=== PATIENT | female | born 1945 | race Caucasian/White ===

== ENCOUNTER 2016-11-15 21:54 | Inpatient (IN) | payer OTHER ==
[2016-11-14 17:13] LABS: A/G RATIO 1.2 (0.7-1.9); ALBUMIN 4.1 G/DL (3.5-5.0); ALKALINE PHOSPHATASE 113 U/L (45-117); BUN (BLOOD UREA NITROGEN) 20 MG/DL (6-23); CALCIUM, SERUM 8.7 MG/DL (8.5-10.4); CHLORIDE, SERUM 99 MMOL/L (96-112); CREATININE 1.03 MG/DL (0.55-1.02); GFR AFRICAN AMERICAN 63 ML/MIN (>=60); GFR NON AFRICAN AMERICAN 55 ML/MIN (>=60); GLOBULIN 3.4 G/DL (2.5-4.1); GLUCOSE, SERUM 84 MG/DL (60-99); POTASSIUM, SERUM 3.7 MMOL/L (3.5-5.3); SGOT(AST) 14 U/L (5-40); SGPT(ALT) 19 U/L (5-65); SODIUM, SERUM 136 MMOL/L (135-148); TOTAL BILIRUBIN 0.5 MG/DL (0-1.2); TOTAL PROTEIN 7.5 G/DL (6.0-8.5)
[2016-11-14 17:15] LABS: CO2 (CARBON DIOXIDE) 27 MMOL/L (24-34)
--- NOTE | ~2016-11-15 | CN ---
Consultation Report [facility] [address] [place]. [address] NAME: TEO BEEBE : 43 STATUS : ADM Richard PAT#: [id number] AGE: 70 ADM/REG DATE : 11/15/16 MR#: [id number] REPORT SERV DATE: 11/16/16 DICTATED BY: LANETTE STEPHENSON DATE: 11/16/16 REPORT STATUS : Draft TRANSCRIBED BY: MODL DATE: 11/16/16 NEUROLOGY CONSULTATION DATE OF CONSULTATION: 11/16/2016 REASON FOR CONSULTATION: Ataxia. HOSPITALISTS: Dr. Darryl Rasmussen and Cari Stewart NP. HISTORY OF PRESENT ILLNESS: The patient is a 70-year-old female, who has come into the hospital because of a reported sudden onset of ataxia. Apparently, this happened one day last week. She is here with a friend and caregiver, who gives most of the history. The patient can speak for herself; however, she has a very disjointed history, and has flight of ideas. The patient mentions that at some point, she had a sudden onset of imbalance, and she noticed that her gait has changed. Her gait was shuffled and slow. She did fall yesterday and had a hard time getting up. The patient's friend and caregiver mentioned that two weeks ago, the patient was walking perfectly fine, but this last Sunday, she noticed that her gait was slow and unsteady. She was concerned and took the patient to her primary caregivers office. The patient did not get to see her normal PCP, but saw another physician there in the office. She saw no other in the office, and it was suggested that she come to the emergency department for further evaluation to rule out a stroke type event. The patient denied any changes in her speech. She denied any changes in her vision. She had no weakness or numbness in the upper extremities. She mentioned that she felt somewhat weak in the lower extremities. She also mentions that for some period of time, she has had numbness and pain in her feet. She states that she is not diabetic. PAST MEDICAL HISTORY: Hypertension, hyperlipidemia, depression and anxiety, history of recurrent falls, vitamin D deficiency, carpal tunnel syndrome, IBS, chronic pain on chronic narcotics, GERD, degenerative disk disease, anemia, and osteoarthritis. PAST SURGICAL HISTORY: Lumbar laminectomy, and abdominal hysterectomy. MEDICATIONS: Home medication list includes Xanax 1 mg four times a day p.r.n., Celexa 20 mg daily, Zetia 10 mg daily, Neurontin 600 mg t.i.d., HCTZ 12.5 mg daily, multivitamin daily, and Prilosec 20 mg b.i.d. ALLERGIES: MULTIPLE, PLEASE REFER TO THE MEDICATION LIST. SOCIAL HISTORY: The patient lives alone. She has three children. Two of her children have nothing to do with her. She denies the use of tobacco, alcohol, or illicits. FAMILY HISTORY: The patient's mother at the age of 84. She from old age. Her father at the age of 84 from an [place]. She had two twin brothers, one who from dementia, the other who is alive has diabetes and coronary artery disease. She has a Consultation Report [address] [place]. [address] NAME: TEO BEEBE : 43 STATUS : ADM Richard PAT#: [id number] AGE: 70 ADM/REG DATE : 11/15/16 MR#: [id number] REPORT SERV DATE: 11/16/16 DICTATED BY: LANETTE STEPHENSON DATE: 11/16/16 REPORT STATUS : Draft TRANSCRIBED BY: EUGENIO DATE: 11/16/16 daughter, who has Parkinson's disease. REVIEW OF SYSTEMS: For pertinent positives, see HPI. PHYSICAL EXAMINATION: GENERAL: The patient is a 70-year-old female, who stands 165 cm and weighs 79.3 kg. VITAL SIGNS: She is afebrile. Heart rate is 53, respiratory rate 18, O2 saturations on room air 97%, and blood pressure 144/67. NEUROLOGIC: She is awake. She is alert. She is very chatty, has a flight of ideas. Has difficulty staying on topic, but is pleasant. Speech is clear. Language is fluent. Pupils are 3 mm PERRLA. Peripheral vision via confrontation is full in both maradiaga; however, she does have significant chronic ptosis of the left eye. Otherwise cranial nerves are intact. She can move all extremities x4. Mtrmje-en-nuci, no ataxia. No pronator drift. No dysmetria, tremor, or asterixis. Upper extremity strength is 5/5. No reported sensory deficits. Upper DTRs are 2+ bilaterally. Lower extremity strength is 5/5. Patellar reflexes are 2+ bilaterally. Plantar reflexes are silent. However, she has diminished sensation from the toes to above the ankles. Diminished vibratory and temperature sensation in the same distribution. Position sense is intact. The patient can get in and out of the bed without difficulty. She can ambulate with minimal assistance. Locomotion is poor. She shows some embellishment when ambulating, does not hang on to objects when demonstrating ataxia, rather walks in the middle of the room. Romberg is negative. She unable to perform the tandem walk. NECK: No carotid bruits, JVD, or thyromegaly. CHEST: Lung sounds are clear. CARDIAC: Regular rate and rhythm. LABORATORY DATA: CBC is normal. BMP shows a potassium of 3.3. Cholesterol values are elevated with a total cholesterol of 219, LDH 233, B12 of 239, and vitamin D level is 11. CT of the brain shows mild deep white matter changes. Old lacunar infarcts in the basal ganglia and caudate nucleus. CT of the cervical spine without contrast, no acute fracture or malalignment, moderate degenerative disk disease changes, C5-C7. Echocardiogram pending, MRI of the brain pending, MRA of the head and neck are pending. ASSESSMENT/PLAN: 1. Reported acute onset of ataxia, etiology unknown. At this point, imaging with MR is pending. This is to rule out stroke. The patient has a B12 deficiency, and will be replaced with B12 injections. Further lab work will be checked. PT/OT will be consulted. The patient will be started on aspirin 81 mg daily. 2. Peripheral neuropathy. Again, the patient's B12 will be replaced intermuscularly. Her Neurontin will be increased to 800 mg t.i.d., and PT and OT will be consulted. 3. Headache. The patient will be given Toradol 30 mg IV x1. CPK and sedimentation rate will be checked to rule out any temporal arteritis. 4. Probable underlying dementia. The patient will be given supportive care here in the hospital, and she will be scheduled with Neurology for dementia workup on an outpatient Consultation Report [place] [address] [place]. [address] NAME: TEO BEBEE JAVIER : 43 STATUS : ADM Richard PAT#: [id number] AGE: 70 ADM/REG DATE : 11/15/16 MR#: [id number] REPORT SERV DATE: 11/16/16 DICTATED BY: LANETTE STEPHENSON DATE: 11/16/16 REPORT STATUS : Draft TRANSCRIBED BY: EUGENIO DATE: 11/16/16 basis. Thank you again for including us in consultation. We will follow with you. HALLEY/EUGENIO Lanette Stephenson DNP, ACNP-BC / [id number] CC: MD Thuan Weiss M.D. Sherry L. Canther, NP F. Lee Hamilton, M.D.
--- NOTE | ~2016-11-15 | HP ---
History And Physical [facility] [address] [facility] [place]. [address] NAME: TEO BEEBE : 43 STATUS : ADM Richard PAT#: [id number] AGE: 70 ADM/REG DATE : 11/15/16 MR#: [id number] REPORT SERV DATE: 11/16/16 DICTATED BY: PATRICIA CALLE DATE: 11/16/16 REPORT STATUS : Draft TRANSCRIBED BY: MODL DATE: 11/16/16 DATE OF ADMISSION: 11/15/2016 POINT OF ENTRY: [facility] Emergency Department. CHIEF COMPLAINT: Ataxia, difficulty with walking, headache. HISTORY OF PRESENT ILLNESS: Ms Beebe is a 70-year-old female with a history of lumbar degenerative disc disease, osteoarthritis, recurrent falls, and other medical comorbidities, who presents to the emergency department today with reports of a week-long history of difficulties walking and gait abnormality. The patient states that for the past week she has been having troubles walking, walking around as if she were drunk in a staggering like fashion. While walking she does also describe some sensation of dizziness as well. She otherwise denies any dysphagia, diplopia, focal areas of weakness, numbness, tingling, or facial changes. The patient states she does have some chronic dysarthric type changes which she does state at the time of examination might be slightly worse than her baseline. The patient also reports a severe headache over the last few days, and suffered mechanical fall at home today while getting up from her chair striking her right side, but denies any loss of consciousness, denies any head trauma. Initial evaluation in the emergency department was notable for stable vital signs. CT scan of the brain was negative, it did show presence of an old stroke. Labs notable for some acute on chronic anemia, some hypokalemia with a potassium of 3.3, otherwise workup was unremarkable. She was subsequently admitted to the Hospitalist Service for further evaluation and management. Other than the difficulties walking which she described staggering around like a drunk as well as headache and some dysarthria, again she denies any fevers, night sweats, chills, chest pain, palpitations, shortness of breath, abdominal pain, nausea, vomiting, diarrhea, constipation, dysuria, lower extremity edema, melena, hematochezia, hemoptysis, or hematemesis. REVIEW OF SYSTEMS: Comprehensive review of systems otherwise negative unless listed in history of present illness. PREVIOUS MEDICAL HISTORY: 1. Hypertension. 2. Hyperlipidemia. 3. Depression. 4. Anxiety. 5. History of recurrent falls. 6. Vitamin D deficiency. History And Physical [address] [address] NAME: TEO BEEBE : 43 STATUS : ADM Richard PAT#: [id number] AGE: 70 ADM/REG DATE : 11/15/16 MR#: [id number] REPORT SERV DATE: 11/16/16 DICTATED BY: PATRICIA CALLE DATE: 11/16/16 REPORT STATUS : Draft TRANSCRIBED BY: EUGENIO DATE: 11/16/16 7. Carpal tunnel. 8. IBS. 9. Chronic pain on chronic narcotics. 10.Gastroesophageal reflux disease. 11.Degenerative disc disease. 12.Anemia. 13.Osteoarthritis. SURGICAL HISTORY: 1. Lumbar laminectomy. 2. Abdominal hysterectomy. ALLERGIES: 1. ZOCOR. 2. CRESTOR. 3. SULFA DRUGS. 4. PENICILLIN. 5. DILAUDID. 6. TRAMADOL. 7. STADOL. 8. INDOCIN. 9. CODEINE. 10.LEVAQUIN. HOME MEDICATIONS: Pending at the time of dictation. SOCIAL HISTORY: Denies any tobacco, alcohol, or illicits. FAMILY MEDICAL HISTORY: Mother with diabetes. Father as well as siblings with coronary artery disease. LABS AND IMAGIN. White count is 5.6, hemoglobin is 9.5, hematocrit is 29.7, platelet count is 173, and INR 1.0. 2. Sodium is 140, potassium 3.3, chloride 105, carbon dioxide 29, BUN 17, creatinine 1.12, glucose is 102, calcium is 8.2, protein is 6.9, albumin is 3.4, bilirubin is 0.2, ALT is 16, AST 13, and alkaline phosphatase is 108. 3. Alcohol level is negative. 4. EKG per my review shows sinus bradycardia with an incomplete right bundle branch block with no evidence of any acute ischemia or infarction. 5. CT scan of the brain shows an old small right basal ganglia with cerebrovascular accident, but otherwise, no acute intracranial abnormality. 6. CT scan of the C-spine shows no acute abnormalities. PHYSICAL EXAMINATION: VITAL SIGNS: Temperature is 97.7 degrees Fahrenheit, pulse is 71, respirations 16, saturating 97% on room air, blood pressure 122/55. History And Physical [address] [address] NAME: TEO BEEBE : 43 STATUS : ADM Richard PAT#: [id number] AGE: 70 ADM/REG DATE : 11/15/16 MR#: [id number] REPORT SERV DATE: 11/16/16 DICTATED BY: PATRICIA CALLE DATE: 11/16/16 REPORT STATUS : Draft TRANSCRIBED BY: EUGENIO DATE: 11/16/16 GENERAL: The patient is awake and alert, in no acute distress. Resting comfortably in bed. She is a well-developed, well-nourished, elderly female. HEENT: Atraumatic and normocephalic. Moist mucous membranes. Pupils are equal, round, reactive to light and accommodation. Extraocular eye movements are intact. 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 NECK: No jugular venous distention or carotid bruits. CARDIAC: Regular rate and rhythm. No murmurs or gallops. Normal S1, S2. LUNGS: Clear to auscultation bilaterally. No wheezes, rhonchi, or crackles. ABDOMEN: Soft, nontender, and nondistended with good bowel sounds. No rebound, guarding, or rigidity. EXTREMITIES: Warm and perfused. No cyanosis, clubbing, or edema. SKIN: Warm and dry. PSYCH: Affect appropriate. NEURO: Alert and oriented x3. Cranial nerves 2 through 12 are grossly intact. Speech is normal. Gait not assessed. She did have 4/5 strength in bilateral lower extremity. Cerebellar function intact with [id number] as well as prso-uk-iwgn. ASSESSMENT: Ms Beebe is a 70-year-old female, who presents with a week-long history of gait abnormality, and what sounds to be like ataxia concerning for possible cerebrovascular accident. PROBLEM LIST: 1. Gait abnormality with ataxia. 2. Possible cerebrovascular accident. 3. Headache. 4. Hypokalemia. 5. Acute on chronic anemia. 6. Degenerative disc disease and osteoarthritis. 7. History of recurrent falls. 8. Chronic pain, on chronic narcotics. PLAN: 1. Gait abnormality with ataxia with concern for possible cerebrovascular accident. We will admit the patient to the Hospitalist Service under the TIA Stroke Pathway. Schedule for MRI/MRA evaluation in the morning as well as Neurology consultation and Physical Therapy evaluation. We will place her on aspirin. We will hold off on statins given her multiple statin allergies and intolerances. Also checking orthostatic vital signs given reports of dizziness and evidence of some mild sinus bradycardia on EKG. 2. Headaches. CT scan of the brain is unremarkable. Followup MRI in the morning. 3. Degenerative disc disease and osteoarthritis. Should the patient's MRI eval be negative, the patient may require some further imaging of the lumbar spine. However, she denies any recent complaints of paresthesias or sciatica, and there was no focal weakness on examination by my exam. 4. Acute on chronic anemia. The patient denies any melena, hematochezia, or hemoptysis. Checking iron studies, folate, B12, as well as occult stool. History And Physical [address] [address] NAME: TEO BEEBE : 44 STATUS : ADM Richard PAT#: [id number] AGE: 70 ADM/REG DATE : 11/15/16 MR#: [id number] REPORT SERV DATE: 11/16/16 DICTATED BY: PATRICIA CALLE DATE: 11/16/16 REPORT STATUS : Draft TRANSCRIBED BY: EUGENIO DATE: 11/16/16 5. DVT prophylaxis. Lovenox subcu. CODE STATUS: The patient wished to be full code. MACIEJ/SAMIL Patricia Calle MD / [id number] CC: Agnes Woods M.D.
--- NOTE | ~2016-11-15 | DS ---
Discharge Summary [place] [address] [facility] [place]. [address] NAME: TEO BEEBE : 43 STATUS : DIS IN PAT#: [id number] AGE: 70 ADM/REG DATE : 11/15/16 MR#: [id number] REPORT SERV DATE: 11/23/16 DICTATED BY: REX ESTEVES DATE: 11/23/16 REPORT STATUS : Draft TRANSCRIBED BY: MODL DATE: 11/23/16 ADMISSION DATE: 11/15/2016 DISCHARGE DATE: 11/22/2016 REASON FOR ADMISSION: This is a 70-year-old female, who had come in with ataxia and difficulty with walking and headache. DISCHARGE DIAGNOSES: 1. Lower extremity weakness and deconditioning. 2. Ataxia with gait abnormality. 3. Headaches. 4. Degenerative disc disease. 5. Osteoarthritis. 6. History of lumbar laminectomy. 7. Urinary tract infection. HOSPITAL COURSE: Please see admission H and P from Brian Rodrigues on 11/16/2016 and interim discharge summary from Julio Wall on 11/21/2016 for full details on admission and hospital stay. I picked up the patient on 11/22/2016. She had had negative workup for stroke, negative neurological workup, and was awaiting rehab placement at [facility]. She had her bed approved on 11/22/2016 and was discharged there. DISCHARGE CONDITION: Stable. DISCHARGE MEDICATIONS: 1. Omeprazole 20 mg p.o. b.i.d. 2. HCTZ 12.5 mg p.o. daily. 3. Xanax 1 mg p.o. q.6 hours p.r.n. 4. Celexa 20 mg p.o. daily. 5. Neurontin 600 mg p.o. t.i.d. 6. Zetia 10 mg p.o. daily. 7. Multivitamin one tablet daily. 8. Fioricet 1-2 tabs q.6 hours p.r.n. DISCHARGE PLAN: The patient is discharged to [facility] and then followup with primary care Thuan Gagnon at conclusion of rehab. DICTATED BY: NATALIIA Sheth/EUGENIO Rex Esteves APN Discharge Summary [place] [address] [facility] [address] [place] [address] NAME: TEO BEEBE : 43 STATUS : DIS IN [facility]#: [id number] AGE: 70 ADM/REG DATE : 11/15/16 MR#: [id number] REPORT SERV DATE: 11/23/16 DICTATED BY: REX ESTEVES DATE: 11/23/16 REPORT STATUS : Draft TRANSCRIBED BY: SAMIL DATE: 11/23/16 / [id number] CC: Agnes Medrano M.D.
--- NOTE | ~2016-11-15 | IDS ---
Interim Discharge Summary [facility] [address] [place]. [address] NAME: TEO BEEBE : 43 STATUS : ADM IN PAT#: [id number] AGE: 70 ADM/REG DATE : 11/15/16 MR#: [id number] REPORT SERV DATE: 11/21/16 DICTATED BY: DATE: REPORT STATUS : Draft TRANSCRIBED BY: MODL DATE: 11/20/16 ADMISSION DATE: 11/15/2016 DISCHARGE DATE: INTERIM DISCHARGE DIAGNOSES: 1. Ataxia/gait abnormality. 2. Headaches. 3. Degenerative disk disease. 4. Osteoarthritis. 5. History of lumbar laminectomy of unknown levels. 6. Urinary tract infection with Enterococcus faecalis. CONSULTING PHYSICIANS: Include Dr. Ramos Villarreal with Neurology. IMAGING: Includes CT of the brain without contrast which was negative for an acute intracranial pathology, mild deep white matter chronic microvascular ischemic changes were noted, and small old lacunar infarct in the right basal ganglia caudate nucleus was noted. Chest PA and lateral was negative. Echocardiogram demonstrated mild diastolic dysfunction, otherwise, normal. MRA of the head and neck were performed, congenital variant, small right P1 segment, otherwise, negative MRA of the tunica-biloxi of [place]. Negative MRI of the neck. MRI of the brain demonstrated chronic small vessel ischemic changes, they were noted on imaging on 07/19/2014. No acute intracranial pathology was noted. CT of the cervical spine without contrast demonstrated no acute fracture or malalignment of the cervical spine. Stable mild- to-moderate degenerative disk disease from C5-C7. For full H and P, please refer to Dr. Brian Rodrigues's dictation on 11/15/2016. Please also see CHRISTINE Elaine's dictation on 11/15/2016. HOSPITAL COURSE/PROBLEM LIST: 1. Ataxia/gait abnormality. As mentioned above on the imaging, acute stroke was ruled out. The patient has had multiple falls at home. She was evaluated by Physical Therapy, who recommended inpatient rehabilitation. She is being evaluated by [facility], where acceptance is pending. According to the Neurology Team, she likely has some dementia, on need of further neurological workup as an outpatient once she has completed inpatient rehabilitation. 2. Headaches. Again, her CT and MRI of the brain were negative for an acute intracranial pathology including tumors. Her headaches could be related to sinusitis, started the patient on Flonase daily. Tylenol was not helpful in controlling her headaches, started the patient on hydrocodone which was somewhat helpful, but did not completely resolve her headaches. She reported to me that she takes tramadol at home and that it works well, so today I prescribed tramadol and hopefully this will help. 3. Urinary tract infection. Urine culture showed E faecalis. The patient is allergic to penicillin, sulfa, and Levaquin, so placed the patient on Macrobid. DISCHARGE PLANNING: Again, PT recommends inpatient rehab, she has been choice for [facility], as soon as she is accepted, she can be discharged. Interim Discharge Summary [place] [id number] [facility] [place]. [address] NAME: TEO BEEBE : 43 STATUS : ADM IN PAT#: [id number] AGE: 70 ADM/REG DATE : 11/15/16 MR#: [id number] REPORT SERV DATE: 11/21/16 DICTATED BY: DATE: REPORT STATUS : Draft TRANSCRIBED BY: EUGENIO DATE: 11/20/16 WALLACE/EUGENIO Julio Wall NP / [id number] CC: MD Thuan Weiss M.D.
[~2016-11-15 21:54] MED LIST: ASA5GR PO; ASAB PO; ASMANEX INH; CELEXA20 PO; CELEXA40 MG PO; CIP5 PO; DIMENHY50I PO; IBU400 PO; LEVOTHYROXIN175 MCG PO; MACRODANTIN 10100 MG PO; MOTRIN IB200 MG PO; MUCINEX DM1 TAB OR; NEUR300 PO; P10 PO; PAX20 PO; PR25 PO; PRAV10 PO; PRILO PO; PRIN10 PO; PROVENTSOL INH; SPIRIVA INH; T3 PO; TRAMADOL PO; ULTRAM50 PO; VITC500 PO; XANAX1 MG PO; ZANTAC 75 PO; ZOCOR10 PO; ZOCOR20 PO; ZOCOR40 PO; ZYRTEC ALLGY10 MG PO; [UNRECOGNIZED DRUG - OTHER]
[2016-11-15 22:49] LABS: BASOPHILS 0.5 %; BASOPHILS ABSOLUTE 0.03 10/3/uL (0.0-0.16); EOSINOPHILS ABSOLUTE 0.11 10/3/uL (0.0-0.53); HEMATOCRIT 29.7 % (36.0-48.0); HEMOGLOBIN 9.5 g/dL (12.0-16.0); IMMATURE GRANULOCYTES 0.2 %; IMMATURE GRANULOCYTES ABSOLUTE 0.01 10/3/uL (0.0-0.11); LYMPHOCYTES 36.4 %; LYMPHOCYTES ABSOLUTE 2.04 10/3/uL (0.67-4.30); MANUAL DIFF NO %; MEAN CORPUSCULAR HEMOGLOB 27.9 pg (26.0-34.0); MEAN CORPUSCULAR VOLUME 87.4 fL (80-100); MEAN PLATELET VOLUME 9.6 fL (9.2-13.0); MONOCYTES 9.5 %; MONOCYTES ABSOLUTE 0.53 10/3/uL (0.21-1.20); NEUTROPHILS 51.4 %; NEUTROPHILS ABSOLUTE 2.88 10/3/uL (2.02-8.40); PLATELET COUNT 173 10/3/uL (150-400); RBC DISTRIBUTION WIDTH 15.2 % (12.0-16.0); WHITE BLOOD CELLS 5.6 10/3/uL (4.5-10.5)
[2016-11-15 22:57] LABS: PARTIAL THROMBO TIME 28.4 SEC (22.5-37.2)
[2016-11-15 23:04] LABS: ALBUMIN 3.4 G/DL (3.5-5.0); ALKALINE PHOSPHATASE 108 U/L (45-117); BUN (BLOOD UREA NITROGEN) 17 MG/DL (6-23); CALCIUM, SERUM 8.2 MG/DL (8.5-10.4); CHLORIDE, SERUM 105 MMOL/L (96-112); CO2 (CARBON DIOXIDE) 29 MMOL/L (24-34); CREATININE 1.12 MG/DL (0.55-1.02); GFR AFRICAN AMERICAN 57 ML/MIN (>=60); GFR NON AFRICAN AMERICAN 49 ML/MIN (>=60); GLOBULIN 3.5 G/DL (2.5-4.1); POTASSIUM, SERUM 3.3 MMOL/L (3.5-5.3); SGOT(AST) 13 U/L (5-40); SGPT(ALT) 16 U/L (5-65); SODIUM, SERUM 140 MMOL/L (135-148); TOTAL BILIRUBIN 0.2 MG/DL (0-1.2); TOTAL PROTEIN 6.9 G/DL (6.0-8.5)
[2016-11-15 23:06] LABS: ALCOHOL < 10 MG/DL (0); GLUCOSE, SERUM 102 MG/DL (60-99)
[2016-11-16] MEDS ORDERED: MICROZIDE PO (01:28)
[2016-11-16] MEDS ORDERED: PRILO PO (01:28)
[2016-11-16] MEDS ORDERED: NEUR600 PO (01:29)
[2016-11-16] MEDS ORDERED: CELEXA20 PO (01:29)
[2016-11-16] MEDS ORDERED: XANAX1 MG PO (01:29)
[2016-11-16] MEDS ORDERED: MULTIVIT/MIN PO (01:30)
[2016-11-16] MEDS ORDERED: ZETIA PO (01:30)
[2016-11-16 02:52] LABS: TROPONIN I <0.02 NG/ML (<0.05)
[2016-11-16 02:58] LABS: CK-MB 1.6 NG/ML; CPK 82 U/L (0-200)
[2016-11-16 03:56] LABS: ASCORBIC ACID (UR NOT ORDER) NEG (NEG); BILIRUBIN, URINE NEGATIVE (NEG); ER URINALYSIS TAT 0 Hrs 00 Mins; KETONE, URINE NEGATIVE (NEG); LEUKOCYTE ESTERASE(NOT OR SMALL (NEG); NITRITE (URINE) NEG (NEG); WBC (NOT ORDERED) (RFLEX) 20 (0-5)
[2016-11-16 04:00] LABS: AMPHETAMINES (NOT ORD) NEG (NEG); BARBITURATES (NOT ORDERED NEG (NEG); BENZODIAZEPINES (NOT ORD) NEG (NEG); CANNABINOIDS (THC) NEG (NEG); COCAINE (NOT ORDERED) NEG (NEG); OPIATES NEG (NEG); PHENCYCLIDINE(PCP) NEG (NEG); TRICYCLICS NEG (NEG)
[2016-11-16 06:02] LABS: BASOPHILS 0.9 %; BASOPHILS ABSOLUTE 0.04 10/3/uL (0.0-0.16); EOSINOPHILS 2.7 %; EOSINOPHILS ABSOLUTE 0.12 10/3/uL (0.0-0.53); HEMOGLOBIN 10.7 g/dL (12.0-16.0); IMMATURE GRANULOCYTES 0.2 %; IMMATURE GRANULOCYTES ABSOLUTE 0.01 10/3/uL (0.0-0.11); LYMPHOCYTES 41.4 %; LYMPHOCYTES ABSOLUTE 1.84 10/3/uL (0.67-4.30); MEAN CORPUS HGB CONC 31.9 g/dL (32.0-36.0); MEAN CORPUSCULAR HEMOGLOB 27.8 pg (26.0-34.0); MEAN PLATELET VOLUME 9.3 fL (9.2-13.0); MONOCYTES 9.5 %; MONOCYTES ABSOLUTE 0.42 10/3/uL (0.21-1.20); NEUTROPHILS 45.3 %; NEUTROPHILS ABSOLUTE 2.01 10/3/uL (2.02-8.40); PLATELET COUNT 172 10/3/uL (150-400); RBC DISTRIBUTION WIDTH 15.3 % (12.0-16.0); RED CELL COUNT 3.85 10/6/uL (4.0-5.6); WHITE BLOOD CELLS 4.4 10/3/uL (4.5-10.5)
[2016-11-16 06:07] LABS: HEMATOCRIT 33.5 % (36.0-48.0); MANUAL DIFF NO %
[2016-11-16 06:09] LABS: PROTIME (NOT ORD) 12.9 SEC (12.0-14.5)
[2016-11-16 06:10] LABS: PARTIAL THROMBO TIME 29.3 SEC (22.5-37.2)
[2016-11-16 06:42] LABS: CHOL/HDL RATIO(NOT ORDER) 2.7 (0-5); CHOLESTEROL 219 MG/DL (< 200); CPK (IF ELEVATED MB BANDS) 69 U/L (0-200); FERRITIN 13 NG/ML (8-252); FOLATE 12.6 NG/ML (>5.2); FREE T4 0.91 NG/DL (0.76-1.46); HDL CHOLESTEROL 81 MG/DL (> 49); IRON BINDING CAPACITY 356 MCG/DL (225-410); IRON, SERUM 48 MCG/DL (35-150); LDL CHOLESTEROL 126 MG/DL (< 130); NON-HDL CHOLESTEROL 138 MG/DL (< 160); TRIGLYCERIDE 61 MG/DL (< 150); TROPONIN I <0.02 NG/ML (<0.05)
[2016-11-16 14:15] LABS: CHOL/HDL RATIO(NOT ORDER) 2.8 (0-5); CHOLESTEROL 213 MG/DL (< 200); CK-MB 1.2 NG/ML; CPK 63 U/L (0-200); HDL CHOLESTEROL 75 MG/DL (> 49); LDL CHOLESTEROL 121 MG/DL (< 130); NON-HDL CHOLESTEROL 138 MG/DL (< 160); TRIGLYCERIDE 89 MG/DL (< 150); TROPONIN I <0.02 NG/ML (<0.05)
[2016-11-16 14:42] LABS: GLYCOHEMOGLOBIN (HbA1c) 5.7 % (4.7-6.1)
[2016-11-17 08:31] LABS: BUN (BLOOD UREA NITROGEN) 16 MG/DL (6-23); CALCIUM, SERUM 8.4 MG/DL (8.5-10.4); CHLORIDE, SERUM 107 MMOL/L (96-112); CO2 (CARBON DIOXIDE) 30 MMOL/L (24-34); CREATININE 0.92 MG/DL (0.55-1.02); GFR AFRICAN AMERICAN 73 ML/MIN (>=60); GFR NON AFRICAN AMERICAN 63 ML/MIN (>=60); GLUCOSE, SERUM 94 MG/DL (60-99); PHOSPHORUS, SERUM 3.6 MG/DL (2.5-4.5); SODIUM, SERUM 141 MMOL/L (135-148)
[2016-11-17 08:32] LABS: POTASSIUM, SERUM 4.1 MMOL/L (3.5-5.3)
[2016-11-19 03:18] LABS: BASOPHILS 0.5 %; BASOPHILS ABSOLUTE 0.03 10/3/uL (0.0-0.16); EOSINOPHILS 2.2 %; EOSINOPHILS ABSOLUTE 0.13 10/3/uL (0.0-0.53); HEMATOCRIT 34.7 % (36.0-48.0); HEMOGLOBIN 11.1 g/dL (12.0-16.0); IMMATURE GRANULOCYTES 0.2 %; IMMATURE GRANULOCYTES ABSOLUTE 0.01 10/3/uL (0.0-0.11); LYMPHOCYTES ABSOLUTE 1.88 10/3/uL (0.67-4.30); MEAN CORPUSCULAR HEMOGLOB 28.2 pg (26.0-34.0); MEAN CORPUSCULAR VOLUME 88.3 fL (80-100); MEAN PLATELET VOLUME 9.6 fL (9.2-13.0); MONOCYTES 6.8 %; NEUTROPHILS 58.3 %; NEUTROPHILS ABSOLUTE 3.42 10/3/uL (2.02-8.40); PLATELET COUNT 210 10/3/uL (150-400); RED CELL COUNT 3.93 10/6/uL (4.0-5.6); WHITE BLOOD CELLS 5.9 10/3/uL (4.5-10.5)
[2016-11-19 03:19] LABS: MANUAL DIFF NO %
[2016-11-19 03:32] LABS: BUN (BLOOD UREA NITROGEN) 15 MG/DL (6-23); CALCIUM, SERUM 8.9 MG/DL (8.5-10.4); CHLORIDE, SERUM 102 MMOL/L (96-112); CREATININE 1.05 MG/DL (0.55-1.02); GFR AFRICAN AMERICAN 62 ML/MIN (>=60); GFR NON AFRICAN AMERICAN 53 ML/MIN (>=60); GLUCOSE, SERUM 99 MG/DL (60-99); SODIUM, SERUM 139 MMOL/L (135-148)
[2016-11-19 03:36] LABS: CO2 (CARBON DIOXIDE) 35 MMOL/L (24-34)
[2016-11-20 04:52] LABS: BASOPHILS 0.4 %; BASOPHILS ABSOLUTE 0.02 10/3/uL (0.0-0.16); EOSINOPHILS 2.8 %; EOSINOPHILS ABSOLUTE 0.14 10/3/uL (0.0-0.53); HEMOGLOBIN 9.8 g/dL (12.0-16.0); IMMATURE GRANULOCYTES 0.4 %; IMMATURE GRANULOCYTES ABSOLUTE 0.02 10/3/uL (0.0-0.11); LYMPHOCYTES 42.3 %; LYMPHOCYTES ABSOLUTE 2.11 10/3/uL (0.67-4.30); MEAN CORPUS HGB CONC 32.3 g/dL (32.0-36.0); MEAN CORPUSCULAR HEMOGLOB 28.2 pg (26.0-34.0); MEAN CORPUSCULAR VOLUME 87.3 fL (80-100); MEAN PLATELET VOLUME 9.4 fL (9.2-13.0); MONOCYTES 8.2 %; MONOCYTES ABSOLUTE 0.41 10/3/uL (0.21-1.20); NEUTROPHILS 45.9 %; NEUTROPHILS ABSOLUTE 2.29 10/3/uL (2.02-8.40); PLATELET COUNT 190 10/3/uL (150-400); RBC DISTRIBUTION WIDTH 14.8 % (12.0-16.0); RED CELL COUNT 3.47 10/6/uL (4.0-5.6)
[2016-11-20 04:53] LABS: HEMATOCRIT 30.3 % (36.0-48.0); MANUAL DIFF NO %
[2016-11-20 05:06] LABS: CALCIUM, SERUM 8.2 MG/DL (8.5-10.4); CHLORIDE, SERUM 103 MMOL/L (96-112); GFR AFRICAN AMERICAN 66 ML/MIN (>=60); GFR NON AFRICAN AMERICAN 57 ML/MIN (>=60); GLUCOSE, SERUM 103 MG/DL (60-99); POTASSIUM, SERUM 3.7 MMOL/L (3.5-5.3); SODIUM, SERUM 133 MMOL/L (135-148)
[2016-11-20 05:09] LABS: BUN (BLOOD UREA NITROGEN) 22 MG/DL (6-23); CO2 (CARBON DIOXIDE) 30 MMOL/L (24-34)
[2016-11-21 04:37] LABS: BUN (BLOOD UREA NITROGEN) 21 MG/DL (6-23); CALCIUM, SERUM 8.7 MG/DL (8.5-10.4); CHLORIDE, SERUM 98 MMOL/L (96-112); CO2 (CARBON DIOXIDE) 31 MMOL/L (24-34); CREATININE 0.94 MG/DL (0.55-1.02); GFR AFRICAN AMERICAN 71 ML/MIN (>=60); GFR NON AFRICAN AMERICAN 61 ML/MIN (>=60); GLUCOSE, SERUM 110 MG/DL (60-99); POTASSIUM, SERUM 3.7 MMOL/L (3.5-5.3); SODIUM, SERUM 133 MMOL/L (135-148)
== END 2016-11-22 14:24 | disposition home or self-care (01) | DRG 92 ==
LOC: ER 21:54 → CDU1 21:59 → CDU2 11-16 02:35
PROVIDERS: Emergency Medicine; Family Medicine; Internal Medicine; Nurse Practitioner Acute Care
DX: R27.0 Ataxia, unspecified (principal); N39.0 Urinary tract infection, site not specified; I10 Essential (primary) hypertension; M51.36 Other intervertebral disc degeneration, lumbar region; M47.812 Spondylosis without myelopathy or radiculopathy, cervical region; M19.90 Unspecified osteoarthritis, unspecified site; Z91.81 History of falling; W18.30XA Fall on same level, unspecified, initial encounter; B95.2 Enterococcus as the cause of diseases classified elsewhere; E78.5 Hyperlipidemia, unspecified; F32.9 Major depressive disorder, single episode, unspecified; F41.9 Anxiety disorder, unspecified; E55.9 Vitamin D deficiency, unspecified; K21.9 Gastro-esophageal reflux disease without esophagitis; Z90.710 Acquired absence of both cervix and uterus; Z88.2 Allergy status to sulfonamides; Z88.5 Allergy status to narcotic agent; Z83.3 Family history of diabetes mellitus
CPT/HCPCS: 36415; 70450; 70544; 70548; 70551-52; 71020; 72125; 80048; 80053; 80061; 80305; 81001; 82140; 82533; 82550; 82553; 82607; 82728; 82746; 83036; 83540; 83550; 83735; 84100; 84439; 84443; 84484; 85025; 85610; 85652; 85730; 86140; 87077; 87086; 87186; 93005; 93306; 97110-GP; 97162-GP; 97165-GO; 97530-GP; 99285; A9270-GY; A9577; G0463; G0480; J2405

== ENCOUNTER 2017-03-14 16:46 | Observation (INO) | payer OTHER ==
[~2017-03-14] VITALS: Ht 165.1 cm; Wt 72.6 kg
--- NOTE | ~2017-03-14 | HP ---
History And Physical [place] [address] [place]. [address] NAME: TEO BEEBE : 43 STATUS : ADM Richard PAT#: [id number] AGE: 71 ADM/REG DATE : 03/14/17 MR#: [id number] REPORT SERV DATE: 03/15/17 DICTATED BY: MELISSA PRASAD DATE: 03/15/17 REPORT STATUS : Draft TRANSCRIBED BY: MODAbdulkadir DATE: 03/15/17 DATE OF ADMISSION: 03/14/2017 CHIEF COMPLAINT: Syncopal episode. HISTORY OF PRESENT ILLNESS: A 71-year-old white female, lives alone. She passed out. She found herself on the kitchen floor. She bumped her head. She states she blacked out before two weeks ago when she was sitting in a chair. This happened when she was very upset. This has not happened since. PAST MEDICAL HISTORY: Hypertension, anxiety. PAST SURGICAL HISTORY: Back surgery, hysterectomy. SOCIAL HISTORY: She does not smoke or drink. Retired. Closest family is daughter. She is a full code. FAMILY HISTORY: Mom of PVD and diabetes. Dad of a heart attack. MEDICATIONS: At home are Xanax 1 mg q.i.d. p.r.n.; aspirin 81 mg daily; Celexa 20 mg daily; vitamin D 23091 units weekly; Zetia 10 mg daily; gabapentin 600 mg t.i.d.; hydrochlorothiazide 12.5 mg daily; multivitamin one daily; Prilosec 20 mg b.i.d.; K-Dur 20 mEq daily; Zantac 150 mg b.i.d.; Ultram 50 mg q.i.d. p.r.n. ALLERGIES: THE PATIENT HAS NUMEROUS ALLERGIES; STADOL, INDOCIN, PENICILLIN, DILAUDID, AND LEVAQUIN. REVIEW OF SYSTEMS: CONSTITUTIONAL: No fever, sweats, or rigors. EYES: No blurred or double vision, vision loss, or glaucoma. HEENT: She has a headache from where she bumped her head. No hearing loss or tinnitus. CARDIOVASCULAR: No chest pain, palpitations, or syncope. RESPIRATORY: No cough, wheezing, or pleuritic pain. GASTROINTESTINAL: She has occasional bouts of nausea. No hematemesis or abdominal pain. MUSCULOSKELETAL: She does have arthralgia, arthritis, back pain. INTEGUMENT: No rash or suspicious skin lesions. NEUROLOGIC: No memory loss or gait disturbance. Does have some weakness. HEMATOLOGIC: No anemia, iron deficiency, or B12 deficiency. PSYCHIATRIC: She does have problems with depression and anxiety. : No dysuria, hematuria, or nephrolithiasis. ENDOCRINE: No diabetes or thyroid disease. Cholesterol is unknown. PHYSICAL EXAMINATION: VITAL SIGNS: Blood pressure is 166/79, temperature 99.9, pulse 81, respirations 16, O2 saturation 95% on room air. CONSTITUTIONAL: Alert and appropriate. History And Physical [address] [address] NAME: TEO BEEBE : 43 STATUS : ADM Richard PAT#: [id number] AGE: 71 ADM/REG DATE : 03/14/17 MR#: [id number] REPORT SERV DATE: 03/15/17 DICTATED BY: MELISSA PRASAD DATE: 03/15/17 REPORT STATUS : Draft TRANSCRIBED BY: EUGENIO DATE: 03/15/17 PSYCHIATRIC: Oriented x3. Memory intact. Affect appropriate. HEENT: The patient has a small hematoma on her left forehead. Oral palate without lesion. EYES: Pupils reactive, anicteric. Conjunctivae clear. NECK: No adenopathy. Supple. No thyromegaly or masses. RESPIRATORY: Clear to percussion and auscultation. No chest wall tenderness. CARDIOVASCULAR: Regular rate and rhythm. No murmurs. ABDOMEN: Soft, nontender. No masses. SKIN: No rash or suspicious lesions. NEUROLOGIC: The patient moves all four extremities. Cranial nerves 2 through 12 intact. LYMPHATIC: No adenopathy in the neck, axilla, or femoral region. MUSCULOSKELETAL: Range of motion intact in upper and lower extremities. DATA: Hemoglobin 10.9, white cell count 8.2. Head CT was unremarkable. C-spine unremarkable. Chest x-ray is unremarkable. Sodium 139, potassium 4.2, BUN 17, creatinine 1.18, glucose 116, magnesium 2. IMPRESSIONS/PLAN: 1. Syncopal episode. We will observe over-night. We will obtain echocardiogram. We will check D-dimer. We will order physical therapy as the patient states that she spent couple of weeks in [facility] [employer] [facility] [employer] [facility] for unclear reason. 2. Polypharmacy. The patient is currently on Xanax and Ultram and several mind-altering medications. These could contribute to her syncopal episode. 3. Hypertension. 4. History of depression and anxiety. NGM/MODL Melissa Prasad MD / [id number] CC: MD Thuan Walker M.D.
--- NOTE | ~2017-03-14 | EEG ---
Electroencephalogram [address] [place]. [address] NAME: TEO BEEBE : 43 STATUS : ADM Richard PAT#: [id number] AGE: 71 ADM/REG DATE : 03/14/17 MR#: [id number] REPORT SERV DATE: 03/15/17 DICTATED BY: MAYLIN LINARES DATE: 03/15/17 REPORT STATUS : Draft TRANSCRIBED BY: MODL DATE: 03/15/17 ORDERING PHYSICIAN: Felicia Mcdonnell MD. [id number]. She is in CDU bed 23. This is an 18 channel digital EEG of a non sleep deprived 71-year-old who has syncopal episodes and drop attacks, struck her head last night with syncope. The background reveals 9-10 cycle per second well-developed occipital alpha rhythm. During the record, there were frequent frontal central slow waves, and very persistent anterior temporal artifact bilaterally. Hyperventilation was not performed. Photic stimulation revealed driving at most frequencies. Sleep was not clearly achieved. EKG was sinus rhythm 66-72. IMPRESSION: MILDLY ABNORMAL DUE TO BILATERAL FRONTAL CENTRAL SLOWING, INCREASING WITH DROWSINESS, ONCE PREFERENTIAL ON THE LEFT. THIS CAN BE CONSISTENT WITH ENCEPHALOPATHY OF ANY ETIOLOGY, TOXIC, METABOLIC, STRUCTURAL, OR POSSIBLY EVEN POSTTRAUMATIC AND POSSIBLY POSTICTAL. IT IS A NONSPECIFIC FINDING. MARYAN/EUGENIO Maylin Linares M.D. / [id number] CC: MD Thuan Walker M.D.
--- NOTE | ~2017-03-14 | DS ---
Discharge Summary [address] [place]. [address] NAME: TEO BEEBE : 43 STATUS : DIS Richard PAT#: [id number] AGE: 71 ADM/REG DATE : 03/14/17 MR#: [id number] REPORT SERV DATE: 03/18/17 DICTATED BY: FELICIA HEART DATE: 03/17/17 REPORT STATUS : Draft TRANSCRIBED BY: MODAbdulkadir DATE: 03/17/17 ADMISSION DATE: 03/14/2017 DISCHARGE DATE: 03/17/2017 CONSULTATION: Neurology, Dr. Kayla Purvis. DISCHARGE DIAGNOSES: 1. Syncope, likely due to seizures. 2. Hypertension. 3. Major depression. 4. History of anxiety disorder. 5. History of old lacunar infarct. IMAGIN. Chest x-ray, impression: Low lung volumes without acute cardiopulmonary abnormalities identified. 2. Brain CT without contrast, impression: Stable mild atrophy. No intracranial bleed. Small calcification adjacent to the dura, right side, image 28, may represent a small incidental meningioma, not clinically significant. 3. CT cervical spine, negative noncontrast CT. 4. CTA of the chest, impression:. a. Limited examination due to prominent respiratory motion. No well-defined filling defects seen in the pulmonary arterial circulation out to the lobar branches to suggest pulmonary embolus. There is some prominence of the main pulmonary artery, which represents some underlying pulmonary hypertension. b. No thoracic aortic aneurysm or dissection demonstrated. c. Mild atelectatic changes in the basilar left lower lobe and lingula. Otherwise, no acute pulmonary pathology appreciated. 5. Echocardiogram, summary: This is a limited study for function. Normal left ventricular size with preserved EF greater than 60%. Normal RV size and systolic function. No structural abnormalities identified to explain syncope. 6. MRI brain without contrast, impression:. a. No acute CVA or other acute intracranial pathology identified. b. Stable small 4 mm old lacunar infarct, right basal ganglia and caudate nucleus. HISTORY OF PRESENT ILLNESS: For detailed HPI, please make reference to Dr. Melissa Mayer' dictation on 03/15/2017. In brief, this is a 71-year-old female, who presented to the emergency department after a syncopal episode at home. The patient reported that she was cooking in the kitchen, suddenly blacked out, and hit her face on the kitchen floor. Vital signs on presentation, blood pressure 166/79, temperature 99.9, pulse 81, respirations 16, oxygen saturation 95% on room air. Laboratory data, hemoglobin 10.9, white blood cells 8.2. Creatinine 1.1. Troponin less than 0.02. EKG shows normal sinus rhythm. CT brain without contrast showed no evidence of intracerebral hemorrhage. An assessment of syncope was made in the ER. The patient was admitted to the Hospitalist Service. Discharge Summary [address] [address] NAME: TEO BEEBE : 43 STATUS : DIS Richard PAT#: [id number] AGE: 71 ADM/REG DATE : 03/14/17 MR#: [id number] REPORT SERV DATE: 03/18/17 DICTATED BY: FELICIA HEART DATE: 03/17/17 REPORT STATUS : Draft TRANSCRIBED BY: EUGENIO DATE: 03/17/17 HOSPITAL COURSE: Syncopal episode likely related to seizures. On further questioning, the patient reported that she has had a similar event that was witnessed by family member and was told that she had seizure-like activities. This syncopal episode that happened prior to presentation was on weakness. Neurology was consulted, who recommended an electrocardiogram. EEG impression concerning for mildly abnormal due to bilateral frontocentral slowing, increasing with drowsiness, once preferential on the left. This was consistent with encephalopathy of any etiology, toxic metabolites , or possibly even posttraumatic and possibly postictal. EEG findings were nonspecific per Neurology interpretation. MRI of the brain was ordered by Neurology that showed no intracranial pathology, but noted to have old lacunar infarct. 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 Hence, the patient was started on Keppra during this admission. The patient tolerated Keppra without any complication. The patient was advised to continue Keppra as an outpatient and follow up with primary care physician and Neurology in four weeks. DISCHARGE MEDICATIONS: 1. Keppra 750 mg p.o. b.i.d. 2. Aspirin 81 mg p.o. daily. 3. Celexa 20 mg p.o. daily. 4. Vitamin D supplements 50,000 units one p.o. weekly. 5. Zetia 10 mg p.o. daily. 6. Gabapentin 300 mg p.o. t.i.d. 7. Hydrochlorothiazide 12.5 mg p.o. daily. 8. Multivitamin one tab p.o. daily. 9. Omeprazole 20 mg p.o. daily. 10.Potassium 20 mEq p.o. daily. The patient was advised to discontinue the following medications: 1. Tramadol 50 mg p.o. t.i.d. 2. Gabapentin was reduced to 300 mg one p.o. t.i.d. and was advised to discontinue Xanax. FOLLOWUP: 1. Follow up with primary care physician within one week of discharge. 2. Follow up with Neurology within four weeks of discharge. DISCHARGE INSTRUCTIONS: The patient was advised not to drive for the next six months and continue to follow up with primary care physician and Neurology as an outpatient. Also, the patient was advised to avoid operation of any automated machinery as well as abstain from swimming. Greater than 35 minutes was used to prepare this patient's discharge, reconcile medication, and advise the patient on discharge plans and followup. IOO/MODL Discharge Summary [address] [address] NAME: TEO BEEBE JAVIER : 43 STATUS : DIS Richard PAT#: [id number] AGE: 71 ADM/REG DATE : 03/14/17 MR#: [id number] REPORT SERV DATE: 03/18/17 DICTATED BY: FELICIA HEART DATE: 03/17/17 REPORT STATUS : Draft TRANSCRIBED BY: MODL DATE: 03/17/17 Felicia Heart MD / [id number] CC: MD Thuan Walker M.D.
--- NOTE | ~2017-03-14 | CN ---
Consultation Report [facility] [address] [place]. [address] NAME: TEO BEEBE : 43 STATUS : ADM Richard PAT#: [id number] AGE: 71 ADM/REG DATE : 03/14/17 MR#: [id number] REPORT SERV DATE: 03/16/17 DICTATED BY: KAYLA PURVIS DATE: 03/16/17 REPORT STATUS : Draft TRANSCRIBED BY: EUGENIO DATE: 03/16/17 NEUROLOGY CONSULTATION DATE OF CONSULTATION: 03/16/2017 REASON FOR CONSULTATION: Syncopal episode. HOSPITALIST: Dr. Mcdonnell. HISTORY OF PRESENT ILLNESS: The patient is a 71-year-old female who went to the store Sunday and when she came home she started to cook some chicken when she had a syncopal episode. This occurred between 2 and 3 p.m. on Sunday. The next thing she knew, she woke up on the kitchen floor. She felt out of sorts and "aches" all over. She also claimed that her body felt numb. She felt her forehead and realized that she had hit her head when she fell on the floor. She still did not feel fully "with it" and called 911. The ambulance arrived and assessed her surroundings and realized that she had fallen face first on the floor. She told them that she wanted to go to [facility], and they brought her to the emergency department for further evaluation. She was admitted to the clinical observation unit and has had an extensive workup. When questioned more extensively, the patient mentioned this is not the first syncopal episode she has had. She had one approximately two weeks ago when she again fell face first and hit her head. The last syncopal episode was witnessed by a friend. The friend stated she had "seizure-like activity." She was admitted back in 10/2016 for imbalance. At that time, the patient was diagnosed with peripheral neuropathy and B12 deficiency. PAST MEDICAL HISTORY: Hypertension, anxiety, B12 deficiency, peripheral neuropathy, and mild dementia. PAST SURGICAL HISTORY: Back surgery and total abdominal hysterectomy. HOME MEDICATIONS: List includes Xanax 1 mg q.i.d., aspirin 81 mg daily, Celexa 20 mg daily, vitamin D 50,000 units weekly, Zetia 10 mg daily, Neurontin 600 mg t.i.d., hydrochlorothiazide 12.5 mg daily, multivitamin daily, Prilosec 20 mg b.i.d., Zofran 8 mg p.r.n. nausea, Klor-Con 20 mEq daily, Zantac 150 mg b.i.d., and Ultram 50 mg q.i.d. ALLERGIES: MULTIPLE, PLEASE REFER TO THE CHART. SOCIAL HISTORY: The patient lives alone. She has three children. She does not smoke, drink, alcohol, or use illicits. FAMILY HISTORY: Her mother at the age of 84 from old age. Father at age 84 from an SD. She has twin brothers, one from dementia and the other is alive and has diabetes and coronary artery disease, and she has one daughter with Parkinson's disease. Consultation Report [id number] [facility] [place]. [address] NAME: TEO BEEBE : 43 STATUS : ADM Richard PAT#: [id number] AGE: 71 ADM/REG DATE : 03/14/17 MR#: [id number] REPORT SERV DATE: 03/16/17 DICTATED BY: KAYLA PURVIS DATE: 03/16/17 REPORT STATUS : Draft TRANSCRIBED BY: EUGENIO DATE: 03/16/17 REVIEW OF SYSTEMS: Please refer to HPI for pertinent positives. PHYSICAL EXAMINATION: GENERAL: The patient is a 71-year-old female, who stands 5 feet 5 inches tall and weighs 159 pounds. VITAL SIGNS: She is afebrile, heart rate 70, respiratory rate 18, O2 saturations on room air 95%, and blood pressure 127/58. NEURO: The patient is awake. She is oriented x4. Communicates appropriately. Speech is clear. Language fluent. Pupils are 4 mm. 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 EOMs are intact. Vision via confrontation is somewhat limited with her left ptosis but other than that, is full via confrontation. There is no drift. No tongue deviation. Uvula rises midline. No reported sensory deficits on the face. [id number]-[id number], no ataxia. Heel- to-olson, no ataxia. No pronator drift, dysmetria. No tremor, asterixis. Upper extremity strength is 5/5. Upper DTRs 2+ bilaterally. No reported sensory deficits. Lower extremity strength is 4/5 bilaterally. Lower DTRs 2+ bilaterally. Downgoing toes. No sensory deficits. The patient can get in and out of the bed without any difficulty. She has good locomotion. She has no ataxia. Romberg is negative. Diminished vibratory and temperature sensation from the toes to above the ankles. NECK: No carotid bruits, JVD, or thyromegaly. CHEST: Lung sounds clear. CARDIAC: Regular rate and rhythm. LABORATORY DATA: CBC is normal. BMP normal. TSH 1.44. EEG: Occipital alpha rhythm, slow waveforms which reveal encephalopathy. No epileptiform discharge. CTA of the chest, no PE or aneurysm. CT of the brain, small calcification, questionable small angioma but no acute changes. ASSESSMENT/PLAN: Syncopal spells, questionable etiology. This could be multifactorial in nature. First of all, polypharmacy. The patient is on some medications that could certainly make her drowsy. She is bradycardic. We will check an EEG. Check orthostasis. Discontinue her hydralazine which could cause blood pressure fluctuations, possible seizures; however, her EEG came back negative for spike wave activity, but her history is suspicious for seizure. I will place her on Keppra 750 mg p.o. b.i.d. We have decreased her Neurontin and her Xanax significantly. I will speak to her about not driving in the [facility] and safety precautions. We will get an MRI of the brain without gadolinium and an MRA of the head and neck to rule out structural abnormalities. She could possibly have obstructive sleep apnea. We will consider doing an outpatient sleep study and lastly consult PT/OT for gait instability. Thank you again for including us in consultation. We will continue to follow with you. My collaborating physician, Dr. Kayla Purvis, has been updated on the patient's case and plan of care. Consultation Report [address] [place]. [address] NAME: TEO BEEBE : 43 STATUS : ADM Richard PAT#: [id number] AGE: 71 ADM/REG DATE : 03/14/17 MR#: [id number] REPORT SERV DATE: 03/16/17 DICTATED BY: KAYLA PURVIS DATE: 03/16/17 REPORT STATUS : Draft TRANSCRIBED BY: EUGENIO DATE: 03/16/17 DICTATED BY: Lanette Prescott DNP, [facility]/EUGENIO Kayla Purvis MD / [id number] CC: MD Thuan Walker M.D.
[~2017-03-14 16:46] MED LIST changes: +MICROZIDE PO; +MULTIVIT/MIN PO; +NEUR600 PO; +ZETIA PO
[2017-03-14 17:30] LABS: BASOPHILS 0.4 %; BASOPHILS ABSOLUTE 0.03 10/3/uL (0.0-0.16); EOSINOPHILS 0.6 %; EOSINOPHILS ABSOLUTE 0.05 10/3/uL (0.0-0.53); ER CBC TAT 0 Hrs 03 Mins; HEMATOCRIT 33.9 % (36.0-48.0); HEMOGLOBIN 10.9 g/dL (12.0-16.0); IMMATURE GRANULOCYTES 0.7 %; IMMATURE GRANULOCYTES ABSOLUTE 0.06 10/3/uL (0.0-0.11); LYMPHOCYTES ABSOLUTE 0.98 10/3/uL (0.67-4.30); MEAN CORPUS HGB CONC 32.2 g/dL (32.0-36.0); MEAN CORPUSCULAR VOLUME 90.2 fL (80-100); MEAN PLATELET VOLUME 9.7 fL (9.2-13.0); MONOCYTES 7.7 %; MONOCYTES ABSOLUTE 0.63 10/3/uL (0.21-1.20); NEUTROPHILS 78.6 %; NEUTROPHILS ABSOLUTE 6.45 10/3/uL (2.02-8.40); PLATELET COUNT 246 10/3/uL (150-400); RBC DISTRIBUTION WIDTH 14.3 % (12.0-16.0); RED CELL COUNT 3.76 10/6/uL (4.0-5.6); WHITE BLOOD CELLS 8.2 10/3/uL (4.5-10.5)
[2017-03-14 17:32] LABS: MANUAL DIFF NO %
[2017-03-14 17:37] LABS: PARTIAL THROMBO TIME 25.9 SEC (22.5-37.2); PROTIME (NOT ORD) 12.7 SEC (12.0-14.5)
[2017-03-14 17:46] LABS: BUN (BLOOD UREA NITROGEN) 17 MG/DL (6-23); CALCIUM, SERUM 8.5 MG/DL (8.5-10.4); CHEST PAIN PROFILE TAT 0 Hrs 19 Mins; CHLORIDE, SERUM 107 MMOL/L (96-112); CO2 (CARBON DIOXIDE) 26 MMOL/L (24-34); CREATININE 1.18 MG/DL (0.55-1.02); GFR AFRICAN AMERICAN 53 ML/MIN (>=60); GFR NON AFRICAN AMERICAN 46 ML/MIN (>=60); GLUCOSE, SERUM 116 MG/DL (60-99); POTASSIUM, SERUM 4.2 MMOL/L (3.5-5.3); SODIUM, SERUM 139 MMOL/L (135-148); TROPONIN I <0.02 NG/ML (<0.05)
[2017-03-15] MEDS ORDERED: VITD PO (00:16)
[2017-03-15] MEDS ORDERED: KLOR-CON M2020 MEQ PO (00:16)
[2017-03-15] MEDS ORDERED: ZANTAC 150 PO (00:16)
[2017-03-15] MEDS ORDERED: ZOFRANODT8 PO (00:17)
[2017-03-15] MEDS ORDERED: ASAB PO (00:18)
[2017-03-15] MEDS ORDERED: ULTRAM50 PO (00:18)
[2017-03-15 04:12] LABS: BASOPHILS 0.4 %; BASOPHILS ABSOLUTE 0.03 10/3/uL (0.0-0.16); EOSINOPHILS 1.3 %; EOSINOPHILS ABSOLUTE 0.11 10/3/uL (0.0-0.53); HEMATOCRIT 35.7 % (36.0-48.0); HEMOGLOBIN 11.2 g/dL (12.0-16.0); IMMATURE GRANULOCYTES 0.4 %; IMMATURE GRANULOCYTES ABSOLUTE 0.03 10/3/uL (0.0-0.11); LYMPHOCYTES 26.3 %; LYMPHOCYTES ABSOLUTE 2.19 10/3/uL (0.67-4.30); MEAN CORPUS HGB CONC 31.4 g/dL (32.0-36.0); MEAN CORPUSCULAR HEMOGLOB 28.6 pg (26.0-34.0); MEAN CORPUSCULAR VOLUME 91.1 fL (80-100); MEAN PLATELET VOLUME 9.8 fL (9.2-13.0); MONOCYTES 8.2 %; MONOCYTES ABSOLUTE 0.68 10/3/uL (0.21-1.20); NEUTROPHILS 63.4 %; PLATELET COUNT 246 10/3/uL (150-400); RBC DISTRIBUTION WIDTH 14.2 % (12.0-16.0); RED CELL COUNT 3.92 10/6/uL (4.0-5.6); WHITE BLOOD CELLS 8.3 10/3/uL (4.5-10.5)
[2017-03-15 04:14] LABS: MANUAL DIFF NO %
[2017-03-15 04:26] LABS: D-DIMER QUANTITATIVE 2.82 ug/mLFEU (< 0.50)
[2017-03-15 04:41] LABS: BUN (BLOOD UREA NITROGEN) 16 MG/DL (6-23); CALCIUM, SERUM 8.8 MG/DL (8.5-10.4); CHLORIDE, SERUM 105 MMOL/L (96-112); CO2 (CARBON DIOXIDE) 27 MMOL/L (24-34); CREATININE 0.94 MG/DL (0.55-1.02); GFR AFRICAN AMERICAN 70 ML/MIN (>=60); GFR NON AFRICAN AMERICAN 61 ML/MIN (>=60); GLUCOSE, SERUM 101 MG/DL (60-99); SODIUM, SERUM 138 MMOL/L (135-148)
[2017-03-17 04:06] LABS: FOLATE 14.7 NG/ML (>5.2)
[2017-03-17] MEDS ORDERED: KEPPRA750 MG PO (14:27)
[2017-03-17] MEDS ORDERED: NEUR300 PO (14:27)
== END 2017-03-17 14:53 | disposition home or self-care (01) ==
LOC: ER 16:46 → CDU1 23:59 → CDU2 23:59
PROVIDERS: Internal Medicine; Nurse Practitioner; Student in an Organized Health Care Education/Training Program
DX: R55 Syncope and collapse (principal); I10 Essential (primary) hypertension; F41.9 Anxiety disorder, unspecified; F32.9 Major depressive disorder, single episode, unspecified; F03.90 Unspecified dementia, unspecified severity, without behavioral disturbance, psychotic disturbance, mood disturbance, and anxiety; G62.9 Polyneuropathy, unspecified; Z90.710 Acquired absence of both cervix and uterus; Z83.3 Family history of diabetes mellitus; Z82.49 Family history of ischemic heart disease and other diseases of the circulatory system; Z88.0 Allergy status to penicillin; Z88.5 Allergy status to narcotic agent; Z88.1 Allergy status to other antibiotic agents; Z88.8 Allergy status to other drugs, medicaments and biological substances; Z88.2 Allergy status to sulfonamides; Z79.82 Long term (current) use of aspirin; Z79.899 Other long term (current) drug therapy; Z98.890 Other specified postprocedural states
CPT/HCPCS: 70450; 70551-52; 71010; 71275; 72125; 80048; 82140; 82306; 82533; 82607; 82746; 83690; 83735; 84443; 84484; 85025; 85379; 85610; 85730; 93005; 93306; 93308; 95816; 96372; 96374; 97161-GP; 99285; A9270-GY; G0378; Q9967